=== PATIENT | female | born 2000 | race Caucasian/White ===

== ENCOUNTER 2022-09-22 18:16 | Emergency (ER) | payer MEDICAID ==
[~2022-09-22] VITALS: Ht 162.6 cm; Wt 63.5 kg
[2022-09-22 18:16] VITALS: BP_SYST 113
--- NOTE | 2022-09-22 18:20 | NUR ---
Patient triaged and placed in waiting room. VSS and patient appears in no acute distress at this time. Accompanied by MOTHER, awaiting available bed, and MD notified of need for MSE.
[2022-09-22 19:56] LABS: BILIRUBIN,URINE NEGATIVE (NEGATIVE); BLOOD, URINE NEGATIVE (NEGATIVE); COLOR,URINE YELLOW (YELLOW); GLUCOSE,URINE NEGATIVE (NEGATIVE); KETONES,URINE NEGATIVE (NEGATIVE); LEUKOCYTE ESTERASE ,URINE 2+ (NEGATIVE); NITRITE, URINE NEGATIVE (NEGATIVE); PROTEIN URINE NEGATIVE (NEGATIVE); UROBILINOGEN,URINE 0.2 (0.2-1.0)
[2022-09-22 19:57] LABS: CLARITY/URINE HAZY (CLEAR)
[2022-09-22] MEDS ORDERED: NACL 0.9% 1,000 ML IV ONE (20:15)
[2022-09-22] MEDS ORDERED: ONDANSETRON HCL 4 MG/2 ML VIAL IVP ONE (20:15)
--- NOTE | 2022-09-22 20:17 | NUR ---
Patient to ER bed ybarra to gown for evaluation. Side rails up. Report given to Jade CLIFFORD .
[2022-09-22 20:19] LABS: RBC,URINE 0-3 /HPF (0-3)
--- NOTE | 2022-09-22 20:20 | NUR ---
Pt brought by mother, A&Ox4, pt presents to ER with bodyaches, fever, cough, SOB, nausea since yesterday,skin pink and warm, cap refill <3, VSS, respirations even and unlabored, will cont to monitor.
[2022-09-22 20:21] LABS: BACTERIA,URINE MODERATE /HPF (None Seen)
[2022-09-22 20:22] LABS: MUCUS,URINE 1+ /LPF (None Seen)
[2022-09-22] MEDS ORDERED: KETOROLAC TROMETHAMINE 30 MG VIAL IVP ONE (20:30)
--- NOTE | 2022-09-22 20:30 | NUR ---
Dr Nava evaluating patient in the triage room
[2022-09-22] MEDS ORDERED: IBUP-1969 PO (20:57)
[2022-09-22] MEDS ORDERED: ONDA-8 TL (20:57)
[2022-09-22] MEDS ORDERED: CIPR500T5 PO (20:57)
[2022-09-22] MEDS ORDERED: predniSONE 20 MG TABLET PO ONE (21:00)
[2022-09-22] MEDS ORDERED: cefTRIAXone 1 GM in D5W 50 ML IV ONE (21:00)
[2022-09-22] MEDS ORDERED: IPRATROPIUM/ALBUTEROL SULFATE 3 ML AMPUL.NEB (DUONEB) INH ONE (21:00)
[2022-09-22] MEDS ORDERED: cefTRIAXone 1 GM VIAL ONE (21:03)
[2022-09-22] MEDS ORDERED: ALBMDI INH (21:17)
[2022-09-22] MEDS ORDERED: PRED20TA PO (21:37)
[2022-09-22] MEDS ORDERED: ALBUTEROL SULFATE 0.083% 2.5 MG/3 ML VIAL.NEB INH ONE (21:45)
[2022-09-22 22:07] VITALS: BP_SYST 113
--- NOTE | 2022-09-22 22:09 | NUR ---
Patient given written and verbal discharge instructions and verbalizes understanding. ER MD discussed with patient the results and treatment provided. Patient in stable condition. ID arm band removed. IV catheter removed intact and dressing applied, no active bleeding. Rx of Albuterol, Cipro, Ibuprofen, Zofran given. Patient educated on pain management and to follow up with PMD. Pain Scale 0/10. Opportunity for questions provided and answered. Medication side effect fact sheet provided.
== END 2022-09-22 22:07 | disposition home or self-care (01) ==
LOC: SED 18:16
DX: N39.0 Urinary tract infection, site not specified (principal); J45.909 Unspecified asthma, uncomplicated; R11.2 Nausea with vomiting, unspecified; R05.9 Cough, unspecified; R09.81 Nasal congestion; Z79.899 Other long term (current) drug therapy; Z20.822 Contact with and (suspected) exposure to COVID-19
CPT/HCPCS: 81000; 87040; 87086; 36415; 71045; 99284; 96361; 96365; 96375; 81025; 87804 ×2; 87426; J7512; J0696; J1885; J2405; J7613; J7030; 94640

== ENCOUNTER 2023-03-17 23:24 | Emergency (ER) | payer SELFPAY ==
[~2023-03-17] VITALS: Ht 162.6 cm; Wt 63.5 kg
[~2023-03-17 23:24] MED LIST: ALBMDI INH; CIPR500T5 PO; IBUP-1969 PO; ONDA-8 TL; PRED20TA PO
[2023-03-17 23:31] VITALS: BP_SYST 118; PULSE 105; RESP 16; TEMP 97.9; O2SAT 98
[2023-03-18] MEDS ORDERED: IPRATROPIUM/ALBUTEROL SULFATE 3 ML AMPUL.NEB (DUONEB) INH ONE
[2023-03-18] MEDS ORDERED: KETOROLAC TROMETHAMINE 30 MG VIAL IM ONE
[2023-03-18] MEDS ORDERED: predniSONE 20 MG TABLET PO ONE
[2023-03-18 01:01] LABS: COVID19 ANTIGEN SOFIA FIA NEGATIVE (NEGATIVE)
[2023-03-18 01:16] LABS: INFLUENZA TYPE A Negative (NEGATIVE); INFLUENZA TYPE B NEGATIVE (NEGATIVE)
[2023-03-18 01:26] LABS: CALCIUM 8.7 mg/dL (8.4-11.0); CREATININE 0.94 mg/dL (0.55-1.30); POTASSIUM 3.8 mmol/L (3.5-5.1)
[2023-03-18 01:34] LABS: ALBUMIN 3.2 g/dL (3.4-4.8); TOTAL BILIRUBIN 0.3 mg/dL (0.0-1.0); TOTAL PROTEIN, SERUM 7.3 g/dL (6.4-8.3)
[2023-03-18 01:48] LABS: BASOPHILS % (AUTO) 0.1 % (0.0-2.0); EOSINOPHILS # (AUTO) 0.5 K/uL (0.0-0.4); EOSINOPHILS % (AUTO) 4.4 % (0.0-4.0); HEMATOCRIT 34.3 % (36-48); HEMOGLOBIN 11.5 g/dL (12.0-16.0); LYMPHOCYTES # (AUTO) 2.2 K/uL (1.0-5.5); LYMPHOCYTES % (AUTO) 20.6 % (20.5-51.5); MEAN CORPUSCULAR HEMOGLOBIN 28 pg (27-31); MEAN CORPUSCULAR HGB CONC 34 % (32-36); MEAN CORPUSCULAR VOLUME 82 fL (79.0-98.0); MONOCYTES # (AUTO) 0.5 K/uL (0.0-1.0); MONOCYTES % (AUTO) 4.5 % (1.7-9.3); NEUTROPHILS # (AUTO) 7.5 K/uL (1.8-7.7); NEUTROPHILS % (AUTO) 70.4 % (40.0-70.0); PLATELET COUNT (AUTO) 312 K/uL (130-430); RED BLOOD CELL COUNT(AUTO) 4.19 MIL/uL (4.2-6.2); RED CELL DISTRIBUTION WIDTH 14.4 % (9.0-15.0); WHITE BLOOD COUNT (AUTO) 10.6 K/uL (4.8-10.8)
[2023-03-18] MEDS ORDERED: ALBMDI INH (02:07)
[2023-03-18] MEDS ORDERED: PRED20TA PO (02:07)
[2023-03-18 02:26] VITALS: BP_SYST 117; PULSE 99; RESP 18; TEMP 98.6; O2SAT 98
== END 2023-03-18 02:26 | disposition home or self-care (01) ==
LOC: SED 23:24
DX: J45.901 Unspecified asthma with (acute) exacerbation (principal); J06.9 Acute upper respiratory infection, unspecified; R07.89 Other chest pain; R06.02 Shortness of breath; R05.9 Cough, unspecified; Z79.899 Other long term (current) drug therapy; Z20.822 Contact with and (suspected) exposure to COVID-19
CPT/HCPCS: 99285; 71046; 87426; 80053; 85025; 84484; 36415; 93005; 87804 ×2; 94640; 96372; J7512; J1885

== ENCOUNTER 2023-03-23 15:00 | Emergency (ER) | payer MEDICAID ==
[~2023-03-23] VITALS: Ht 162.6 cm; Wt 63.5 kg
[2023-03-23 15:06] VITALS: BP_SYST 123; PULSE 109; RESP 22; TEMP 98.2; O2SAT 99
[2023-03-23 17:18] LABS: COVID19 ANTIGEN SOFIA FIA NEGATIVE (NEGATIVE)
[2023-03-23 17:19] LABS: INFLUENZA TYPE A Negative (NEGATIVE); INFLUENZA TYPE B NEGATIVE (NEGATIVE)
[2023-03-23] MEDS ORDERED: KETOROLAC TROMETHAMINE 30 MG VIAL IVP ONE (17:30)
[2023-03-23] MEDS ORDERED: NACL 0.9% 1,000 ML IV ONE (17:30)
== END 2023-03-23 17:00 | disposition left against medical advice (07) ==
LOC: SED 15:00
DX: B34.9 Viral infection, unspecified (principal); M79.10 Myalgia, unspecified site; J02.9 Acute pharyngitis, unspecified; R53.83 Other fatigue; J45.909 Unspecified asthma, uncomplicated; F12.90 Cannabis use, unspecified, uncomplicated; Z79.899 Other long term (current) drug therapy; Z20.822 Contact with and (suspected) exposure to COVID-19
CPT/HCPCS: 36415; 93005; 99284